=== PATIENT | male | born 1970 | race Two or more races ===

== ENCOUNTER 2021-07-23 22:20 | Emergency (ER) | payer OTHER ==
[~2021-07-23] VITALS: Ht 167.6 cm; Wt 77.1 kg
[2021-07-24] MEDS ORDERED: DIAZ10TA3 PO (04:45)
[2021-07-24] MEDS ORDERED: KETOROLAC TROMETH 30 MG/ML 1ML VIAL IM ONE (04:45)
[2021-07-24] MEDS ORDERED: diazePAM 5 MG TAB PO ONE (04:45)
[2021-07-24 05:25] VITALS: BP 144/92
== END 2021-07-24 05:39 | disposition home or self-care (01) ==
LOC: ER 22:25
DX: M54.2 Cervicalgia (principal); R20.0 Anesthesia of skin
CPT/HCPCS: 72125; 96372; 99284; J1885